=== PATIENT | female | born 1975 | race Two or more races ===

== ENCOUNTER → 2017-01-17 | Outpatient (CLI) | payer OTHER ==
[~2017-01-17] MED LIST: NO MEDICATIONS; ZOFRAN ODT4 MG PO
--- NOTE | ~2017-01-17 | CT4 ---
[facility] A Service [facility] RADIOLOGY TEXT RESULTS PATIENT: CATRACHITA MÁRQUEZ LOCATION: [facility] : 73 UNIT #: [id number] AGE: [address]: Danny Schultz MD SEX: F ORDER DR: [id number] [place] [id number] O MR#: [id number] Acc #: [id number] NAME: CATRACHITA MÁRQUEZ : 1975 SEX: F STUDY DATE/TIME: 01/17/2017 11:34 UNIT: [facility] ROOM: STUDY DESCRIPTION: CT Abd and Pelv Wo Cont Attending Physician: Danny Schultz M.D. Referring Physician: Danny Schultz M.D. Ordering Physician: Danny Schultz M.D. Primary Care Physician: Danny Schultz M.D. MEDICAL IMAGING REPORT This report is preliminary unless electronic signature is present. EXAM CT of abdomen and pelvis without contrast. DATE OF EXAM 01/17/2017 INDICATIONS Generalized abdominal pain and distension for the past week. PROCEDURE Unenhanced CT of the abdomen and pelvis. COMPARISON 01/24/2012 TECHNIQUE NOTE: This CT exam was performed with one or more of the following radiation dose reduction techniques: automatic exposure control, adjustment of mA and/or kV according to patient size, and iterative reconstruction. FINDINGS ABDOMEN WITHOUT CONTRAST: Included lung bases are clear. The liver, spleen, kidneys, adrenal glands, pancreas, gallbladder have an unremarkable unenhanced appearance. Moderate colonic stool burden. Appendix is normal. 2.1 cm fat-containing umbilical hernia. PELVIS WITHOUT CONTRAST: No pelvic mass or fluid. No aggressive appearing bone lesion. IMPRESSION 1. No acute findings in the abdomen or pelvis. [facility] A Service [facility] RADIOLOGY TEXT RESULTS PATIENT: CATRACHITA MÁRQUEZ LOCATION: [facility] : 73 UNIT #: [id number] AGE: [address]: Danny Schultz MD SEX: F ORDER DR: 2. Moderate colonic stool burden. 3. Fat-containing umbilical hernia. Dictated by... Chris Valenzuela M.D. THIS IS AN ELECTRONICALLY VERIFIED REPORT Chris Valenzuela M.D. at 01/20/2017 7:21 AM MARYLOU/mercedez TD: 01/17/2017 18:13 JOB #: [id number] MEDICAL IMAGING REPORT
== END | disposition home or self-care (01) ==
LOC: SCT 11:16
DX: R10.2 Pelvic and perineal pain (principal); R11.0 Nausea; R19.7 Diarrhea, unspecified; K42.9 Umbilical hernia without obstruction or gangrene
CPT/HCPCS: 74176

== ENCOUNTER → 2017-01-24 | Outpatient (CLI) | payer OTHER ==
--- NOTE | ~2017-01-24 | MY11 ---
[facility] A Service of [facility] RADIOLOGY TEXT RESULTS PATIENT: CATRACHITA MÁRQUEZ LOCATION: [facility] : 73 UNIT #: [id number] AGE: [address]: Danny Schultz MD SEX: F ORDER DR: [id number] [address] [address] [id number] O MR#: [id number] Acc #: [id number] NAME: CATRACHITA MÁRQUEZ : 1975 SEX: F STUDY DATE/TIME: 01/24/2017 9:51 UNIT: [facility] ROOM: STUDY DESCRIPTION: MY Mammogram Screening Dig Tate Attending Physician: Danny Schultz M.D. Referring Physician: Danny Schultz M.D. Ordering Physician: Danny Schultz M.D. Primary Care Physician: Danny Schultz M.D. MEDICAL IMAGING REPORT This report is preliminary unless electronic signature is present. EXAM Digital screening mammogram, 01/24/2017 HISTORY 42-year-old woman, no risk elevation. Annual screening. COMPARISON 11/02/2015 FINDINGS Digital imaging of each breast was completed utilizing a two-view examination of each breast in craniocaudal and mediolateral-oblique projections. Review and interpretation of digital mammograms include a second review in conjunction with FDA-approved CAD device. There is a normal parenchymal presentation bilaterally consistent with the patient's age. There are no breast masses imaged and no parenchymal asymmetry is visualized. There are no suspicious microcalcifications and I see no focal architectural disturbance. IMPRESSION Negative screening digital mammogram. One-year followup recommended. Patients over the age of 40 are entered into a reminder system with target due date for the next mammogram. A result letter will also be sent to the patient. BIRADS: 1 Negative Dictated by... Alexander Mendez M.D. THIS IS AN ELECTRONICALLY VERIFIED REPORT [facility] A Service [facility] RADIOLOGY TEXT RESULTS PATIENT: CATRACHITA MÁRQUEZ LOCATION: [facility] : 73 UNIT #: [id number] AGE: [address]: Danny Schultz MD SEX: F ORDER DR: Alexander Mendez M.D. at 01/24/2017 11:33 AM JORDAN/flaca TD: 01/24/2017 10:38 JOB #: [id number] MEDICAL IMAGING REPORT Page 1 of 1
== END | disposition home or self-care (01) ==
LOC: SMAM 09:16
DX: Z12.31 Encounter for screening mammogram for malignant neoplasm of breast (principal)
CPT/HCPCS: G0202

== ENCOUNTER → 2017-05-30 | Outpatient (CLI) | payer OTHER ==
--- NOTE | ~2017-05-30 | MR113 ---
[facility] A Service of [facility] RADIOLOGY TEXT RESULTS PATIENT: CATRACHITA MÁRQUEZ LOCATION: [facility] : 73 UNIT #: [id number] AGE: [address]: Danny Schultz MD SEX: F ORDER DR: [id number] [address] [address] [id number] O MR#: [id number] Acc #: [id number] NAME: CATRACHITA MÁRQUEZ : 1975 SEX: F STUDY DATE/TIME: 05/31/2017 UNIT: [facility] ROOM: STUDY DESCRIPTION: MR Lumbar Wo Contrast Attending Physician: Danny Schultz M.D. Referring Physician: Danny Schultz M.D. Ordering Physician: Danny Schultz M.D. Primary Care Physician: Danny Schultz M.D. MEDICAL IMAGING REPORT This report is preliminary unless electronic signature is present. EXAM MRI lumbar spine without contrast 05/30/2017 1019 hours. HISTORY 42-year-old woman complaining of increasing low back pain for 10 years, gradually worsening each year with radiation to the right lower extremity and left lower extremity. No known injury. COMPARISON Lumbar spine series 05/14/2017, CT abdomen and pelvis 01/17/2017, prior lumbar MRI 09/05/2011. TECHNIQUE Sagittal axial T1 and T2-weighted images. Sagittal STIR. No contrast was administered. FINDINGS The conus medullaris appears normal, terminating at the T12-L1 level. The lumbar spine is normal and the bone marrow signal is normal. The discs appear normal with the exception of L4-L5, where there is disc desiccation, disc height loss, and posterior disc bulging. L1-2, L2-3, and L3-4 demonstrate no central canal or foraminal narrowing. There is minimal facet arthropathy at L3-4. L4-5 demonstrates central broad base disc bulging touching the anterior aspect of the thecal sac. There is no foraminal narrowing. L5-S1 demonstrates slightly diminished disc height with no desiccation. There is no central canal or foraminal stenosis. The patient is noted to have a left-sided L5-S1 assimilation joint with STS. [facility] A Service of [facility] RADIOLOGY TEXT RESULTS PATIENT: CATRACHITA MÁRQUEZ LOCATION: [facility] : 73 UNIT #: [id number] AGE: [address]: Danny Schultz MD SEX: F ORDER DR: amelia sclerosis present, similar to prior CT and prior plain film. This is a partially transitional L5-S1 vertebra. The sclerotic change suggests this may be a possible source of focal left-sided pain at the lumbosacral junction. IMPRESSION 1. Disc height loss and desiccation with central disc bulging at L4-L5. This touches the anterior aspect of the thecal sac without significant central canal or foraminal narrowing. 2. Mild lower lumbar facet arthropathy. 3. 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 This is an anatomic variant, but a potential source of pain, given the sclerotic changes at this assimilation joint. Correlate with focal point tenderness on the left side at the upper sacrum. Dictated by... Jessika Mckee M.D. THIS IS AN ELECTRONICALLY VERIFIED REPORT Jessika Mckee M.D. at 06/02/2017 8:41 AM Silverio TD: 06/01/2017 13:57 JOB #: [id number] MEDICAL IMAGING REPORT Page 1 of 1
== END | disposition home or self-care (01) ==
LOC: SMRI 09:38
DX: M51.36 Other intervertebral disc degeneration, lumbar region (principal); M54.5 Low back pain; M51.26 Other intervertebral disc displacement, lumbar region; M12.88 Other specific arthropathies, not elsewhere classified, other specified site
CPT/HCPCS: 72148